=== PATIENT | female | born 1955 | race Caucasian/White ===

== ENCOUNTER → 2019-02-01 06:13 | Outpatient (CLI) | payer SELFPAY, OTHER ==
--- NOTE | 2019-02-01 15:24 | STRESSREP ---
Stress Test Report Pharmacologic myocardial perfusion stress test. 63-year-old lady with a history of chest pain. Stress protocol: Resting EKG demonstrates normal sinus rhythm with a rate of 72 bpm normal intervals are noted resting blood pressures 166/98 mmHg. 0.4 mg of regadenoson was infused per usual protocol followed by rapid intravenous saline flush injection continuous EKG monitoring was performed. The maximum heart rate attained was 103 bpm which was 66% of maximum predicted heart rate the maximum workload was 1 metabolic equivalent. At rest there were no ST or T wave changes noted suggest abnormal flow reserve at peak infusion nonspecific ST-T wave changes were noted. No clinical angina was noted. The resting blood pressure was 166/98 with a final blood pressure 150/70 8 m of mercury. Myocardial perfusion protocol. 11.0 mCi of technetium 99m sestamibi was injected at rest. 0.4 mg of regadenoson was infused per usual protocol peak infusion 36.0 mCi of technetium 99m sestamibi was injected stress images were obtained stress and rest images are reconstructed in comparing the short axis vertical and horizontal long axis. Gated images were also obtained Perfusion SPECT analysis: Review of the stress images demonstrate normal uptake of tracer noted in all areas of myocardium the rest images similar demonstrate normal uptake of tracer noted in all rest myocardium. No evidence of previous infarct is noted no ischemia is noted. Gated SPECT analysis: The gated ejection fraction is noted to be 45% per Conclusion: Normal pharmacologic myocardial perfusion stress test. Preserved ejection fraction.
== END ==
PROVIDERS: Family Provider Family Medicine; PCP Family Medicine; Referring Provider Family Medicine; Visit Provider Family Medicine
DX: R94.31 Abnormal electrocardiogram [ECG] [EKG] (principal)
CPT/HCPCS: 78452; 93017; A9500; A4216; J2785

== ENCOUNTER → 2023-09-08 | Outpatient (CLI) | payer OTHER, SELFPAY ==
--- NOTE | 2023-09-07 | IMM_PTH ---
PATIENT: MAGGI KIM LOC: [facility] U#:[id number] AGE/SX: 67/F ROOM: RE09/08/[address]: Dr. Fernando Nelson MD : 1955 BED: DIS: 09/08/2023 SPEC #: [id number] RECD: 09/11/23 10:10 STATUS: YENY REQ #: [id number] KHADRA: 09/07/23 00:[address]: Fernando Nelson DEPT: IMMUNOHISTOCHEMISTRY RECD BY: Pino Garcia ENTERED: 09/11/23 10:11 SP TYPE: IMMUNO OTHR DR: Dr. Chester Harkins MD Tissues: Breast, NOS Procedures: CALPONIN-1 (add) CK5-6 (add) CK8 (add) E-CAD (add) HER2 DEISY (add) KI-67 (add) P53 (add) IA (add) P40 (add) ER (initial) PHYSICIAN & INSTITUTION [place] [id number] SPECIMEN INFORMATION: Tissue Source: Right breast tissue Clinical Info: Right breast Specimen Number: [id number] CPT code: 43098,17146g3 METHODOLOGY: Deparaffinized sections of prefer/formalin-fixed tissue or PAP/DQ stained slides are incubated with monoclonal/polyclonal antibodies/oligonucleotide probes. Localization is made via biotin free immunoperoxidase method. Appropriate controls are performed and reacted as expected. Results on target cell population are indicated in the following table: RESULTS: ANTIBODY / CLONE RESULT E-Cad (ECH-6) positive CK8 (02nbjtC82) positive Calponin-1 (MG320F) negative CK5-6 (D5 & 1684) negative P40 (BC28) negative P53 (DO-7) positive, rare cells (wild type pattern) Ki-67 (30-9) positive low, ~10% MORPHOMETRIC ANALYSIS ER (clone 6F11) >95%, strong intensity IA (clone 16/1E2) >95%, strong intensity Her-2Neu (clone CB11) 3+ The prognostic test for HER2 is performed on formalin-fixed paraffin embedded tissue. A 3+ (positive) staining pattern is defined as intense, homogeneous, complete, circumferential membranous staining in >10% of contiguous tumor cells. A similar weak (2+) staining pattern is interpreted as equivocal. CECILIA follow-up testing is recommended for all equivocal cases. Positivity/negativity for ER/IA is reported if > or < 1% of the tumor cells are immuno- reactive, respectively. The ASCO/CAP criteria is used for scoring. Reference: Journal of Clinical Oncology, 2013; 31:6093-7802 & 2010; 16:2961-2158. Ischemic time: Less than one hour. Duration of fixation: 9 Hrs; Sample Adequate: Yes. These assays have not been validated on decalcified tissues. Results should be interpreted with caution given the likelihood of false negativity on decalcified specimens or fixation greater than 72 hours. Alternative testing methods (FISH/dualISH for Her2; gene expression for ER) are recommended, if applicable. Please notify the laboratory if additional testing is required. These tests were developed and their performance characteristics determined by [facility]. They may not have been cleared or approved by the U.S. Food and Drug Administration. The FDA has determined that such clearance or approval is not necessary. The above immunohistochemical/dualISH markers are ordered and reviewed by the Pathologist. The test for HER 2 is performed on formalin-fixed paraffin embedded tissue using the CB11 mouse monoclonal antibody (Ideatory). A 3+ staining pattern is interpreted as positive and is defined as a strong membranous staining involving the entire cell membrane in over 30% of invasive tumor cells. A similar weak staining pattern (2+) involving 10% of the tumor cells is interpreted as equivocal. HER 2 follow-up testing by FISH is recommended for all equivocal results. Reference: [place] Society of Clinical Oncology and the College of [place] [employer] (J. Clin. Oncol. 23: 118-145, 2007). Fixative Used: Formalin; Duration of Fixation: 9 Hrs; Sample Adequate: Yes INTERPRETATION: Right breast, biopsy: Invasive ductal carcinoma, provisional grade 2. Positive for estrogen receptors (favorable prognostic indicator). Positive for progesterone receptors (favorable prognostic indicator). Positive for overexpression of [id number]. DANIEL/mr 09/12/2023
--- NOTE | 2023-09-07 10:40 | BRBX_PTH ---
PATIENT: MAGGI KIM LOC: [facility] U#:[id number] AGE/SX: 67/F ROOM: RE09/08/[address]: Dr. Fernando Nelson MD : 1955 BED: DIS: 09/08/2023 SPEC #: [id number] RECD: 09/08/23 10:57 STATUS: YENY MARTINEZ #: [id number] KHADRA: 09/07/23 10:[address]: Fernando Nelson DEPT: SURGICAL PATHOLOGY RECD BY: Trever Bray ENTERED: 09/08/23 11:18 SP TYPE: BREAST BX OTHR DR: Dr. Chester Harkins MD Tissues: Right breast, NOS Procedures: Surgery Specimen Level IV HEADER OPERATION: Right breast biopsy PRE-OP DIAGNOSIS: Right breast TISSUE SUBMITTED: Right breast tissue Ischemic Time: 1 minute Fixation Time: 9 hours MICROSCOPIC DIAGNOSIS Right breast tissue, core biopsy: Invasive ductal carcinoma. See cancer summary in the comment section. SJ/mr 09/11/2023 COMMENT INVASIVE BREAST CANCER SUMMARY: Procedure: Needle core biopsy Specimen Laterality: right Tumor site: not specified. Histologic type: Invasive ductal carcinoma, no special type Provisional Histologic grade (Notting histologic score): Glandular/Tubule Differentiation Score: 3 Nuclear Pleomorphism Score: 2 Mitotic Rate Score: 1 Overall grade: 2 (score of 7) Tumor Size (greatest dimension): 0.6 cm in greatest length. Ductal Carcinoma In situ: not identified. Lymph-vascular invasion: not identified. Microcalcifications: not identified. Additional Findings: none Ancillary studies, Breast Marker Study ([id number]): ER: positive (>95%, strong intensity) SC: positive (>95%, strong intensity) Her2: positive (3+)) Ki67: positive, low, ~10% [id number]: not performed. Pathologic Stage: Not applicable The above summary is in compliance with [employer] [place] [employer] (CAP) Cancer Protocols Checklist and [place] Joint Committee on Cancer (AJCC), Staging Manual, 8th Ed. Immunohistochemistry ([id number]) supports the above diagnosis. MICROSCOPIC DESCRIPTION Slides are reviewed. GROSS DESCRIPTION Received is one container labeled with the patient's name and not further designated. The specimen consists of multiple elongated fragments of cavazos-yellow soft tissue measuring in aggregate 1.0 x 0.5 x <0.1cm. The specimen is totally submitted in one cassette. Unique 09/08/2023 TC:0 CPT:52668
== END | disposition home or self-care (01) ==
LOC: LABSPEC 11:00
PROVIDERS: PCP Family Medicine; Referring Provider Surgery; Visit Provider Surgery
DX: C50.911 Malignant neoplasm of unspecified site of right female breast (principal); Z17.0 Estrogen receptor positive status [ER+]
CPT/HCPCS: 88305; 88341; 88342

== ENCOUNTER 2024-11-14 11:27 | Emergency (ER) | payer OTHER, SELFPAY ==
[2024-11-14 11:28] VITALS: BP 132/97; PULSE 79; RESP 16; TEMP 36.5; O2SAT 96; BMI 26.3
--- NOTE | 2024-11-14 11:55 | EKG12_ITS ---
Test Reason : SOB Blood Pressure : */* mmHG Vent. Rate : 76 BPM Atrial Rate : 76 BPM P-R Int : 188 ms QRS Dur : 92 ms QT Int : 380 ms P-R-T Axes : 62 -48 117 degrees QTcB Int : 427 ms Sinus rhythm with frequent Premature ventricular complexes Possible Left atrial enlargement Left axis deviation Minimal voltage criteria for LVH, may be normal variant ( Ethan product ) ST & T wave abnormality, consider lateral ischemia Abnormal ECG Confirmed by WILLY LEHMAN ([id number]), supervising editor news reel PAMELA NGUYEN ([id number]) on 11/19/2024 6:30:33 AM Referred By: Confirmed By: WILLY LEHMAN
--- NOTE | 2024-11-14 12:00 | ED.VIS.DYS ---
HPI <AUGUSTINE Fagan - Last Filed: 11/14/24 17:14> History of Present Illness Chief Complaint: Shortness of Breath Narrative Narrative: Patient presenting today after being sent over by her oncologist, Dr. Mon due to concerns for dyspnea on exertion she has had over the past 3 weeks. She has a history of CHF, they performed an echocardiogram today that revealed a slightly decreased EF of 5 to 10%. She is currently taking Herceptin due to a history of breast cancer which can contribute to worsening CHF. She reports mild swelling to her ankles and feet that has not been worse, she reports orthopnea intermittently. She denies fevers, chills, cough, chest pain, nausea, and vomiting. She denies any history of blood clots or recent surgery/travel/immobilization. PE Risk Factors: Positive for Cancer; Negative for Prior DVT or PE, Recent immobilization, Recent surgery or Recent travel PFSH <AUGUSTINE Fagan - Last Filed: 11/14/24 17:14> [facility] Medical History Invasive ductal carcinoma of breast HTN (hypertension) Home Medications ?Medication ?Instructions ?Recorded ?Last Taken ?Type losartan 50 mg tablet 50 mg PO QDAY 09/08/23 Unknown History furosemide 20 mg tablet (Lasix) 20 mg PO DAILY #7 tabs 11/14/24 Unknown Rx Allergy/AdvReac Type Severity Reaction Status Date / Time No Known Allergies Allergy Verified 11/14/24 11:28 Social History adopted: No Smoking Status: Never smoker alcohol intake: never ROS <AUGUSTINE Fagan - Last Filed: 11/14/24 17:14> ROS ED Constitutional Constitutional ED: Denies chills or fever(s) Cardiovascular Cardiovascular: Reports orthopnea; Denies chest pain Respiratory/Chest Respiratory/Chest: Reports dyspnea on exertion and orthopnea; Denies cough Gastrointestinal Gastrointestinal: Denies abdominal pain, nausea or vomiting Musculoskeletal Musculoskeletal: Denies arthralgias or myalgias Integumentary Denies rash Neurologic Neurologic: Denies weakness EXAM <AUGUSTINE Fagan - Last Filed: 11/14/24 17:14> Physical Exam Const Vital Signs: 11/14/24 11:28 11/14/24 11:49 11/14/24 12:26 Temperature 97.7 F L Temperature Source Oral Pulse Rate 79 Respiratory Rate 16 Respiratory Effort Normal Non-Labored Respiratory Depth Normal Respiratory Pattern Normal Blood Pressure 132/97 H Blood Pressure Mean 108 Pulse Ox 96 Oxygen Delivery Method Room Air Room Air Room Air 11/14/24 12:27 11/14/24 13:00 11/14/24 15:00 Temperature Temperature Source Pulse Rate 76 72 85 Respiratory Rate 20 H 16 21 H Respiratory Effort Respiratory Depth Respiratory Pattern Blood Pressure 119/99 H 119/99 H 130/104 H Blood Pressure Mean 105 105 112 Pulse Ox 97 98 95 Oxygen Delivery Method Room Air Room Air Room Air 11/14/24 16:39 Temperature 97.9 F Temperature Source Pulse Rate 85 Respiratory Rate 21 H Respiratory Effort Respiratory Depth Respiratory Pattern Blood Pressure 117/78 Blood Pressure Mean 91 Pulse Ox 95 Oxygen Delivery Method Positive well nourished, well developed and no apparent distress General Appearance ED: well developed HEENT Reports normocephalic and head/scalp atraumatic Mouth ED: Yes moist mucous membranes normal Eyes PERRL and EOMs intact bilaterally Neck full ROM and supple Chest Wall inspection of chest normal Resp normal respiratory effort and clear to auscultation bilaterally Cardio regular rate and regular rhythm GI soft to palpation, non-tender, non-distended and no masses Back/Spine normal ROM and normal to inspection Extremity normal to inspection and full ROM Extremity Narrative: Mild swelling to the bilateral feet and ankles, no pitting edema Neuro oriented x3, CN's II-XII intact bilaterally, moves all extremities, no focal motor deficits and no sensory deficits noted Sensorium / Orientation: awake and alert Psych mental status grossly normal and thought process normal Skin no rashes or lesions noted and no wounds <Dr. Carine Manriquez MD - Last Filed: 11/15/24 07:16> Physical Exam Const Vital Signs: 11/14/24 11:28 11/14/24 11:49 11/14/24 12:26 Temperature 97.7 F L Temperature Source Oral Pulse Rate 79 Respiratory Rate 16 Respiratory Effort Normal Non-Labored Respiratory Depth Normal Respiratory Pattern Normal Blood Pressure 132/97 H Blood Pressure Mean 108 Pulse Ox 96 Oxygen Delivery Method Room Air Room Air Room Air 11/14/24 12:27 11/14/24 13:00 11/14/24 15:00 Temperature Temperature Source Pulse Rate 76 72 85 Respiratory Rate 20 H 16 21 H Respiratory Effort Respiratory Depth Respiratory Pattern Blood Pressure 119/99 H 119/99 H 130/104 H Blood Pressure Mean 105 105 112 Pulse Ox 97 98 95 Oxygen Delivery Method Room Air Room Air Room Air 11/14/24 16:39 Temperature 97.9 F Temperature Source Pulse Rate 85 Respiratory Rate 21 H Respiratory Effort Respiratory Depth Respiratory Pattern Blood Pressure 117/78 Blood Pressure Mean 91 Pulse Ox 95 Oxygen Delivery Method [facility] <AUGUSTINE Fagan - Last Filed: 11/14/24 17:14> [facility] Narrative Medical decision making narrative: Patient presenting today after being sent over by Dr. Mon due to concerns for worsening dyspnea on exertion and orthopnea over the past 3 weeks. She is currently on Herceptin due to history of breast cancer and has a known history of CHF. She had an echocardiogram performed today in the office that revealed a slightly decreased ejection fraction. From 40% to 32 +/- 5%. She has a dilated left ventricle. Cardiac workup obtained, her CBC reveals a hemoglobin of 10.7, unsure if this is chronic or not. BUN 24, nonsignificant delta troponin. Given history of cancer, CTA of the chest obtained to assess for PE and is negative but does reveal bilateral pleural effusions. She was given IV Lasix here and I will give her a prescription for Lasix for home. She was referred to cardiology, recommended she have close outpatient follow-up. She was ambulated here and did not become hypoxic. At this point I do not feel she requires admission to the hospital. Return instructions were discussed with her, she will be discharged in stable condition. Patient seen and evaluated with DENEEN. I personally interviewed and examined the patient. I was involved in all aspects of patient's orders, interpretation of results, and treatment. Agree with the above. In brief the patient is currently on Herceptin due to history of breast cancer and has a known history of CHF. She had a routine echo done that showed worsening ejection fraction. She is experiencing orthopnea and dyspnea on exertion. She is on room air saturating 95%. She ambulated with pulse ox and continues to saturate well. Lab work was unremarkable. EKG showed sinus rhythm with frequent PVCs. No ischemic changes noted. No ST elevation or depression. No dysrhythmia. Did consider PE given her breast cancer history as a cause of her worsening heart failure, CT was negative for any pulmonary embolism. She does have the bilateral pleural effusions, she was given a dose of IV Lasix here. Discharged home with p.o. Lasix. Lab Data Attestation: I reviewed the patient's lab results. Labs: Laboratory Results - last 24 hr 11/14/24 11/14/24 12:20 14:35 WBC 5.8 RBC 3.98 L Hgb 10.7 L Hct 32.6 L MCV 81.9 MCH 26.9 L MCHC 32.8 RDW Std Deviation 50.1 H RDW Coeff of Jin 16.9 H Plt Count 262 MPV 9.4 Immature Gran % (Auto) 0.200 Neut % (Auto) 61.5 Lymph % (Auto) 28.3 Wheeler % (Auto) 8.3 Eos % (Auto) 1.4 Baso % (Auto) 0.3 Absolute Neuts (auto) 3.5 Absolute Lymphs (auto) 1.63 Nucleated RBC % 0 Sodium 136 Potassium 4.3 Chloride 101 Carbon Dioxide 23.3 Anion Gap 12 BUN 24 H Creatinine 0.97 Estim Creat Clear Calc 54.75 Est GFR (MDRD) Non-Af 62 BUN/Creatinine Ratio 24.2 H Glucose 100 H Calcium 9.1 Troponin T High Sens 28 H Troponin T Hi Sens 2 Hr 24 H Radiography Diagnostic Testing: Clinical Impression(s) from Imaging Studies Chest CTA 11/14/24 12:01 IMPRESSION: There is no evidence of pulmonary embolism. Bilateral pleural effusions right greater than left with dependent bibasilar atelectasis. Postoperative changes seen in the right breast with congestion and skin thickening. Reading Location: [id number] <Dr. Carine Manriquez MD - Last Filed: 11/15/24 07:16> [facility] Narrative Medical decision making narrative: Patient presenting today after being sent over by Dr. Mon due to concerns for worsening dyspnea on exertion and orthopnea over the past 3 weeks. She is currently on Herceptin due to history of breast cancer and has a known history of CHF. She had an echocardiogram performed today in the office that revealed a slightly decreased ejection fraction. From 40% to 32 +/- 5%. She has a dilated left ventricle. Cardiac workup obtained, her CBC reveals a hemoglobin of 10.7, unsure if this is chronic or not. BUN 24, nonsignificant delta troponin. Given history of cancer, CTA of the chest obtained to assess for PE and is negative but does reveal bilateral pleural effusions. She was given IV Lasix here and I will give her a prescription for Lasix for home. She was referred to cardiology, recommended she have close outpatient follow-up. She was ambulated here and did not become hypoxic. At this point I do not feel she requires admission to the hospital. Return instructions were discussed with her, she will be discharged in stable condition. Patient seen and evaluated with DENEEN. I personally interviewed and examined the patient. I was involved in all aspects of patient's orders, interpretation of results, and treatment. Agree with the above. In brief the patient is currently on Herceptin due to history of breast cancer and has a known history of CHF. She had a routine echo done that showed worsening ejection fraction. She is experiencing orthopnea and dyspnea on exertion. She is on room air saturating 95%. She ambulated with pulse ox and continues to saturate well. Lab work was unremarkable. Troponin with reflex, no significant delta change. EKG showed sinus rhythm with frequent PVCs. No ischemic changes noted. No ST elevation or depression. No dysrhythmia. Did consider PE given her breast cancer history as a cause of her worsening heart failure, CT was negative for any pulmonary embolism. She does have the bilateral pleural effusions, she was given a dose of IV Lasix here. Discharged home with p.o. Lasix. History & Record Review Discussion w/independent historian: Patient and Family Lab Data Labs: Laboratory Results - last 24 hr 11/14/24 11/14/24 12:20 14:35 WBC 5.8 RBC 3.98 L Hgb 10.7 L Hct 32.6 L MCV 81.9 MCH 26.9 L MCHC 32.8 RDW Std Deviation 50.1 H RDW Coeff of Jin 16.9 H Plt Count 262 MPV 9.4 Immature Gran % (Auto) 0.200 Neut % (Auto) 61.5 Lymph % (Auto) 28.3 Wheeler % (Auto) 8.3 Eos % (Auto) 1.4 Baso % (Auto) 0.3 Absolute Neuts (auto) 3.5 Absolute Lymphs (auto) 1.63 Nucleated RBC % 0 Sodium 136 Potassium 4.3 Chloride 101 Carbon Dioxide 23.3 Anion Gap 12 BUN 24 H Creatinine 0.97 Estim Creat Clear Calc 54.75 Est GFR (MDRD) Non-Af 62 BUN/Creatinine Ratio 24.2 H Glucose 100 H Calcium 9.1 Troponin T High Sens 28 H Troponin T Hi Sens 2 Hr 24 H Radiography Diagnostic Testing: Clinical Impression(s) from Imaging Studies Chest CTA 11/14/24 12:01 IMPRESSION: There is no evidence of pulmonary embolism. Bilateral pleural effusions right greater than left with dependent bibasilar atelectasis. Postoperative changes seen in the right breast with congestion and skin thickening. Reading Location: [id number] Discharge Plan Triage Chief Complaint: Shortness of Breath ED Midlevel Provider: Anita Mendoza ED Provider: Carine Manriquez Dx/Rx/DC Orders Clinical Impression: CHF (congestive heart failure), Invasive ductal carcinoma of breast, Dyspnea on exertion Instructions: ED Heart Failure, Congestive (CHF) Prescriptions: New furosemide [Lasix] 20 mg tablet 20 mg PO DAILY Qty: 7 0RF No Action losartan 50 mg tablet 50 mg PO QDAY Primary Care Provider: Chester Harkins Referrals: Ave Hopkins MD [Med Staff - Active Staff] - 1 Week Chester Harkins MD [Primary Care Provider] - 5-7 Days Activity Restrictions/Additional Instructions: Follow-up with cardiology. I have only given you a week of furosemide (Lasix) please have this refilled by either cardiology, your PCP, or oncology. Have repeat labs in about a week prior to restarting this medication. Print Language: Faroese Disposition Disposition: Home, Self Care Discharge Date/Time: 11/14/24 16:41
--- NOTE | 2024-11-14 12:01 | CT_ITS ---
PROCEDURE: CTA CHEST W/WO CONTRAST 11/14/2024 REASON FOR EXAM: DYSPNEA, HX CANCER TECHNIQUE: CTA CHEST W/WO CONTRAST Multiplanar Sagittal and Coronal images were obtained. 3D post processing was performed CONTRAST: Isovue 370 VOLUME: 100 mL One or more dose reduction techniques were used (e.g., Automated exposure control, adjustment of the mA and/or kV according to patient size, use of iterative reconstruction technique). RADIATION DOSE SUMMARY: CTDlvol: 7.7 mGy DLP: 355.31 mGycm COMPARISON: None FINDINGS: Hardware: None Lymph nodes: No significant lymph nodes are seen. Heart: The heart is nonenlarged. Coronary artery calcification. Thoracic Aorta: Atherosclerotic plaque formation of the thoracic aorta. Pulmonary Vessels: No evidence of pulmonary embolism. Lungs and Airways: Small bilateral pleural effusions right greater than left with dependent bibasilar atelectasis. Minimal scarring in the lingula segment of the left upper lobe. The visualized portions of the upper abdomen are unremarkable. Degenerative changes of the thoracic spine. There is diffuse thickening of the skin of the right breast. There is congestion of the right breast. There is a 12.4 mm x 21 mm irregular nodular density in the right breast with surgical clips at the site. CT/CTA Chest W/WO Contrast IMPRESSION: There is no evidence of pulmonary embolism. Bilateral pleural effusions right greater than left with dependent bibasilar at electasis. Postoperative changes seen in the right breast with congestion and skin thicken ing. Reading Location: [id number]
[2024-11-14 12:27] VITALS: BP 119/99; PULSE 76; RESP 20; O2SAT 97
[2024-11-14 12:27] LABS: Hematocrit 32.6 % (37-47); Hemoglobin 10.7 g/dL (12.0-15.0); Immature Granulocytes Count 0.010 X10^3/uL (0.0-0.0); Mean Corp Hgb Conc 32.8 g/dL (32-36); Mean Corpuscular Volume 81.9 fL (81-99); Mean Platelet Vol. 9.4 fl (6.2-12.0); NRBC Flagged by Analyzer 0 % (0-5); Platelet Count 262 K/mm3 (150-450); RBC Distribution Width CV 16.9 % (11.6-14.6); RBC Distribution Width SD 50.1 fl (35.1-43.9); Red Blood Count 3.98 M/mm3 (4.2-5.4); White Blood Count 5.8 K/mm3 (4.4-11.0)
--- NOTE | 2024-11-14 12:41 | ED.RN ---
Pt arrived with power port accessed with none power port needle.Port de-acessed and re-accessed with power injectable needle without difficulty.
[2024-11-14 13:00] VITALS: BP 119/99; PULSE 72; RESP 16; O2SAT 98
[2024-11-14 13:07] LABS: Anion Gap 12 (5-15); BUN 24 mg/dL (4-19); BUN/Creat Ratio 24.2 RATIO (10-20); Calcium,Total 9.1 mg/dL (7.6-11.0); Carbon Dioxide 23.3 mmol/L (21.0-32.0); Chloride 101 mmol/L (98-108); Estimated Creatinine Clearance 54.75 ml/min (50-250); Glucose 100 mg/dL (70-99); Potassium 4.3 mmol/L (3.3-5.1); Troponin T High Sensitivity 28 ng/L (<=14)
[2024-11-14 15:00] VITALS: BP 130/104; PULSE 85; RESP 21; O2SAT 95
[2024-11-14 15:12] LABS: Troponin T High Sens 2 HR 24 ng/L (<=14)
[2024-11-14 16:39] VITALS: BP 117/78; PULSE 85; RESP 21; TEMP 36.6; O2SAT 95
== END 2024-11-14 16:41 | disposition home or self-care (01) ==
PROVIDERS: Physician Assistant; Emergency Provider Student in an Organized Health Care Education/Training Program; PCP Family Medicine; Visit Provider Student in an Organized Health Care Education/Training Program
DX: R06.00 Dyspnea, unspecified (principal); I11.0 Hypertensive heart disease with heart failure; I50.9 Heart failure, unspecified; C50.919 Malignant neoplasm of unspecified site of unspecified female breast; Z79.899 Other long term (current) drug therapy
CPT/HCPCS: 36591; 71275; 80048; 84484; 85025; 93005; 96374; 99285; Q9967; A4216; J1938